=== PATIENT | male | born 1980 | race American Indian/Alaskan Native ===

== ENCOUNTER 2018-12-22 20:27 | Emergency (ER) | payer OTHER ==
[2018-12-22] MEDS ORDERED: ASPIRIN PO ONE (20:47)
--- NOTE | 2018-12-22 20:50 | Emergency Department Report ---
Chief Complaint: Chest Pain Stated Complaint: CHEST PAIN SOB Time Seen by Provider: 12/22/18 20:46 - HPI History of Present Illness: This is a 38 y.o. male that presents to the ER with chest pain. No PMH. Patient states he was in route home when symptoms started. States pain is worse with deep breaths. Current smoker, 1/2 ppd. - Exam Vital Signs: Vital Signs 12/22/18 20:33 Pulse Rate 80 Vital Signs 12/22/18 12/22/18 20:33 20:48 Temperature 98.4 F Pulse Rate 80 83 Respiratory 16 Rate Blood Pressure 197/119 O2 Sat by Pulse 98 Oximetry MSE screening note: Focused history and physical exam performed. Due to findings the following was ordered: labs, ekg, and cxr Main ED for further evaluation ED Disposition for MSE Condition: Stable
[2018-12-22 21:18] LABS: Basophils # (Auto) 0.1 K/mm3 (0.0-0.1); Basophils % (Auto) 1.7 % (0.0-1.8); Eosinophils # (Auto) 0.2 K/mm3 (0.0-0.4); Eosinophils % (Auto) 2.5 % (0.0-4.3); Hematocrit 43.6 % (35.5-45.6); Hemoglobin 14.8 gm/dl (11.8-15.2); Lymphocytes # (Auto) 4.1 K/mm3 (1.2-5.4); Lymphocytes % (Auto) 47.1 % (13.4-35.0); Mean Corpuscular HGB Conc 34 % (32-34); Mean Corpuscular Volume 87 fl (84-94); Monocytes # (Auto) 0.7 K/mm3 (0.0-0.8); Monocytes % (Auto) 7.8 % (0.0-7.3); Platelet Count 287 K/mm3 (140-440); Red Blood Count 5.02 M/mm3 (3.65-5.03); Red Cell Distribution Width 13.8 % (13.2-15.2)
--- NOTE | 2018-12-22 21:40 | XRay Report ---
PROCEDURE: XR CHEST 1V AP TECHNIQUE: AP chest HISTORY: Chest Pain COMPARISONS: None FINDINGS: Trachea midline. Heart size normal. No pneumothorax. No effusion. No acute airspace disease. No acute bony abnormality IMPRESSION: No active pulmonary disease.. This document is electronically signed by Al Loyola MD., December 22 2018 09:38:18 PM ET
[2018-12-22 21:50] LABS: BUN/Creatinine Ratio 13; Blood Urea Nitrogen 10 mg/dL (9-20); Calcium 9.6 mg/dL (8.4-10.2); Hemolysis Index 4
[2018-12-22] MEDS ORDERED: TORADOL IM ONE (23:44)
--- NOTE | 2018-12-22 23:45 | Emergency Department Report ---
ED Chest Pain HPI - General Chief Complaint: Chest Pain Stated Complaint: CHEST PAIN SOB Time Seen by Provider: 12/22/18 20:46 Source: patient, RN notes reviewed Mode of arrival: Ambulatory Limitations: No Limitations - History of Present Illness Initial Comments: This is a 38-year-old gentleman. The patient is not known to this provider previously. Patient reports a history of tobacco consumption, questionable elevated blood pressure, and daily cannabis consumption. The patient presents to the emergency room today with complaints of resolved lef t-sided chest pain. Chest pain started at 6:00. The chest pain is described as aching. It is now resolved. He thinks it lasted for about a minute or so. It was associated with pleuritic left upper back pain. The back pain is still present. It is aching and throbbing, constant since 6:00, worsens with palpation, range of motion and deep inspiration. The patient denies leg pain and leg swelling. He denies posterior leg pain and swelling, surgeries, immobilization. The patient reports no DVT or pulmonary embolus risk factors. He does not take aspirin on a daily basis. There is no family history of cardiac disease, or pulmonary embolus or DVT. He denies headache, neck pain, abdominal pain, hematemesis, or bright red blood per rectum. He reports that his chest pain did not radiate to his back, arms or neck, but rather the back pain was simultaneous. Furthermore, the patient to me denies exertional shortness of breath. The patient is left-hand dominant, and performs clerical work. MD Complaint: chest pain -: Gradual Onset: during rest Pain Location: left chest, other Severity scale (0 -10): 7 Quality: tightness, aching Consistency: other Improves With: other Worsens With: other Context: other Aspirin use within the Past 7 Days: (0) No - Related Data On Oral Contraceptives: No Previous Rx's Medication Instructions Recorded Last Taken Type Acetaminophen [Tylenol Arthritis] 650 mg PO Q6HR PRN #30 tablet.er 12/23/18 U nknown Rx Aspirin [Aspirin BABY CHEW TAB] 81 mg PO QDAY #30 tab.chew 12/23/18 Unknown Rx Famotidine [Pepcid] 20 mg PO BID #60 tablet 12/23/18 Unknown Rx Ibuprofen [Motrin] 600 mg PO Q8H PRN #30 tablet 12/23/18 Unknown Rx Allergies Allergy/AdvReac Type Severity Reaction Status Date / Time No Known Allergies Allergy Unverified 12/22/18 20:47 Heart Score - HEART Score History: Slightly suspicious EKG: Non-specific Age: < 45 Risk factors: 1-2 risk factors Troponin: < normal limit HEART Score: 2 - Critical Actions Critical Actions: 0-3 pts:0.9-1.7%risk of adverse cardiac event.Candidate for discharge ED Review of Systems ROS: Stated complaint: CHEST PAIN SOB Other details as noted in HPI Constitutional: denies: fever, malaise Eyes: denies: vision change ENT: denies: epistaxis Respiratory: denies: cough Cardiovascular: chest pain Gastrointestinal: denies: abdominal pain Genitourinary: denies: dysuria Musculoskeletal: back pain Skin: denies: lesions Neurological: denies: weakness Psychiatric: denies: anxiety ED Past Medical Hx - Past Medical History Previous Medical History?: No - Surgical History Past Surgical History?: No - Social History Smoking Status: Current Every Day Smoker Substance Use Type: None - Medications Home Medications: Home Medications Medication Instructions Recorded Confirmed Last Taken Type Acetaminophen [Tylenol Arthritis] 650 mg PO Q6HR PRN #30 tablet.er 12/23/18 Unknown Rx Aspirin [Aspirin BABY CHEW TAB] 81 mg PO QDAY #30 tab.chew 12/23/18 Unknown Rx Famotidine [Pepcid] 20 mg PO BID #60 tablet 12/23/18 Unknown Rx Ibuprofen [Motrin] 600 mg PO Q8H PRN #30 tablet 12/23/18 Unknown Rx ED Physical Exam - General Limitations: No Limitations General appearance: alert, in no apparent distress - Head Head exam: Present: atraumatic, normocephalic - Eye Eye exam: Present: normal appearance, EOMI. Absent: nystagmus - ENT ENT exam: Present: normal exam, normal orophraynx, mucous membranes moist, normal external ear exam - Neck Neck exam: Present: normal inspection, full ROM. Absent: tenderness, meningismus - Respiratory Respiratory exam: Present: normal lung sounds bilaterally. Absent: respiratory distress - Cardiovascular Cardiovascular Exam: Present: regular rate, normal rhythm, normal heart sounds. Absent: bradycardia, tachycardia, irregular rhythm, systolic murmur, diastolic murmur, rubs, gallop - GI/Abdominal GI/Abdominal exam: Present: soft. Absent: distended, tenderness, guarding, rebound, rigid, pulsatile mass - Rectal Rectal exam: Present: deferred - Extremities Exam Extremities exam: Present: normal inspection (2+ pulses noted in the bilateral upper, lower extremities. Compartments soft. No long bony tenderness. The pelvis is stable.), full ROM, normal capillary refill, other (there is no palpable cord. There is a negative Homans sign.). Absent: tenderness, pedal edema, joint swelling, calf tenderness - Back Exam Back exam: Present: normal inspection, full ROM. Absent: tenderness, CVA tenderness (R), paraspinal tenderness, vertebral tenderness - Neurological Exam Neurological exam: Present: alert, oriented X3, CN II-XII intact, normal gait, other (Extraocular movements intact. Tongue midline. No facial droop. Facial sensation intact to light touch in the V1, V2, V3 distribution bilaterally. 5 and 5 strength in 4 extremities.. Sensation is intact to light touch in 4 e xtremities.). Absent: motor sensory deficit - Psychiatric Psychiatric exam: Present: normal affect, normal mood - Skin Skin exam: Present: warm, dry, intact, normal color. Absent: rash ED Course Vital Signs 12/22/18 12/22/18 12/22/18 20:33 20:48 23:27 Temperature 98.4 F 98.1 F Pulse Rate 80 83 69 Respiratory 16 14 Rate Blood Pressure 197/119 Blood Pressure 147/93 [Right] O2 Sat by Pulse 98 98 Oximetry 12/23/18 00:13 Temperature Pulse Rate Respiratory 15 Rate Blood Pressure Blood Pressure [Right] O2 Sat by Pulse Oximetry JULIO score - Julio Score Age > 65: (0) No Aspirin use within the Past 7 Days: (0) No 3 or more CAD Risk Factors: (0) No 2 or more Angina events in past 24 hrs: (0) No Known CAD with more than 50% Stenosis: (0) No Elevated Cardiac Markers: (0) No ST Deviation Greater than 0.5mm: (0) No JULIO Score: 0 ED Medical Decision Making - Lab Data Result diagrams: 12/22/18 20:54 12/22/18 20:54 Vital Signs 12/22/18 12/22/18 12/22/18 20:33 20:48 23:27 Temperature 98.4 F 98.1 F Pulse Rate 80 83 69 Respiratory 16 14 Rate Blood Pressure 197/119 Blood Pressure 147/93 [Right] O2 Sat by Pulse 98 98 Oximetry 12/23/18 00:13 Temperature Pulse Rate Respiratory 15 Rate Blood Pressure Blood Pressure [Right] O2 Sat by Pulse Oximetry Lab Results 12/22/18 12/22/18 12/22/18 Range/Units 20:54 20:54 20:54 WBC 8.6 (4.5-11.0) K/mm3 RBC 5.02 (3.65-5.03) M/mm3 Hgb 14.8 (11.8-15.2) gm/dl Hct 43.6 (35.5-45.6) % MCV 87 (84-94) fl MCH 29 (28-32) pg MCHC 34 (32-34) % RDW 13.8 (13.2-15.2) % Plt Count 287 (140-440) K/mm3 Lymph % (Auto) 47.1 H (13.4-35.0) % [place] % (Auto) 7.8 H (0.0-7.3) % Eos % (Auto) 2.5 (0.0-4.3) % Baso % (Auto) 1.7 (0.0-1.8) % Lymph # 4.1 (1.2-5.4) K/mm3 [place] # 0.7 (0.0-0.8) K/mm3 Eos # 0.2 (0.0-0.4) K/mm3 Baso # 0.1 (0.0-0.1) K/mm3 Seg Neutrophils % 40.9 (40.0-70.0) % Seg Neutrophils # 3.5 (1.8-7.7) K/mm3 D-Dimer 135.00 (0-234) ng/mlDDU Sodium 139 (137-145) mmol/L Potassium 4.2 (3.6-5.0) mmol/L Chloride 99.6 (98-107) mmol/L Carbon Dioxide 27 (22-30) mmol/L Anion Gap 17 mmol/L BUN 10 (9-20) mg/dL Creatinine 0.8 (0.8-1.5) mg/dL Estimated GFR > 60 ml/min BUN/Creatinine Ratio 13 % Glucose 89 (75-100) mg/dL Calcium 9.6 (8.4-10.2) mg/dL Troponin T < 0.010 (0.00-0.029) ng/mL 12/22/18 Range/Units 23:33 WBC (4.5-11.0) K/mm3 RBC (3.65-5.03) M/mm3 Hgb (11.8-15.2) gm/dl Hct (35.5-45.6) % MCV (84-94) fl MCH (28-32) pg MCHC (32-34) % RDW (13.2-15.2) % Plt Count (140-440) K/mm3 Lymph % (Auto) (13.4-35.0) % [place] % (Auto) (0.0-7.3) % Eos % (Auto) (0.0-4.3) % Baso % (Auto) (0.0-1.8) % Lymph # (1.2-5.4) K/mm3 [place] # (0.0-0.8) K/mm3 Eos # (0.0-0.4) K/mm3 Baso # (0.0-0.1) K/mm3 Seg Neutrophils % (40.0-70.0) % Seg Neutrophils # (1.8-7.7) K/mm3 D-Dimer (0-234) ng/mlDDU Sodium (137-145) mmol/L Potassium (3.6-5.0) mmol/L Chloride (98-107) mmol/L Carbon Dioxide (22-30) mmol/L Anion Gap mmol/L BUN (9-20) mg/dL Creatinine (0.8-1.5) mg/dL Estimated GFR ml/min BUN/Creatinine Ratio % Glucose (75-100) mg/dL Calcium (8.4-10.2) mg/dL Troponin T < 0.010 (0.00-0.029) ng/mL - EKG Data -: EKG Interpreted by Wy EKG shows normal: sinus rhythm Rate: normal - EKG Data When compared to previous EKG there are: previous EKG unavailable 12/23/18 00:40 KG #1 shows a normal sinus rhythm, 83 bpm, normal axis, normal intervals, high left ventricular voltage, early repolarization, motion artifact, abnormal EKG, not consistent with ST elevation myocardial infarction. EKG #2 appears to be unchanged from prior. - Radiology Data Radiology results: report reviewed, image reviewed X-ray of the chest is negative for acute disease - Medical Decision Making Differential diagnosis, including not limited to: Chest wall pain, costochondritis, pulmonary embolus, GERD, gastritis, hiatal hernia, pneumonia, acute coronary syndrome, muscular back pain Assessment and plan: Pleasant appearing calm and cooperative, 38-year-old gentleman, with chest pain that is low risk by the JULIO score, low risk by the heart score, troponin negative 2, chest pain now resolved, no pulmonary embolus or DVT risk factors, low risk by well's criteria, perc negative, with a negative d-dimer. Objective testing unremarkable. Patient appears to be in no pain at this time, and he reports that he feels quite comfortable at this time. He is noted to be talking on a cellular phone, and in no acute distress. Discussed recommendations for tobacco cessation and cannabis cessation with the patient, who verbalized understanding, and indicated that he does not want to quit smoking at this time. Recommended follow-up with a molecular biologist complete outpatient cardiac risk stratification, as the patient is at low risk for major adverse cardiac event. Extensive discussion had with patient. Through shared decision making, patient understands that he is at low risk for major adverse cardiac event, and reports that he is reliable to closely follow up with outpatient cardiology to complete a risk stratification. Feels improved after Toradol. Critical care attestation.: If time is entered above; I have spent that time in minutes in the direct care of this critically ill patient, excluding procedure time. ED Disposition Clinical Impression: History of chest pain, Elevated blood pressure reading Disposition: DC- TO HOME OR SELFCARE Is pt being admited?: No Does the pt Need Aspirin: No Condition: Stable Instructions: Chest Pain (ED), Hypertension (ED) Additional Instructions: Take the medications as needed/directed. I recommend the patient discontinue consumption of cannabis, and tobacco. I recommend that the patient follow up with your molecular biologist within the next 3-4 days as an outpatient. Contact any of the listed cardiology practices, and informed front office staff that patient was here for an evaluation in the emergency room, and that outpatient close cardiology follow-up has been recommended to complete outpatient cardiac risk stratification/obtain cardiac stress test. Take medications as needed/directed. Return to the emergency room right away with new pain, worsening pain, migration of pain, projectile vomiting, change in mental status, confusion, new, worsening or different symptoms. Referrals: YARELIS CORDERO MD [Staff Physician] - 3-5 Days GENNARO MCKENZIE MD [Staff Physician] - 3-5 Days Forms: Work/School Release Form(ED)
[2018-12-23 00:43] VITALS: BP 133/94
== END 2018-12-23 01:01 | disposition home or self-care (01) ==
LOC: ED 20:27
DX: R07.89 Other chest pain (principal); R03.0 Elevated blood-pressure reading, without diagnosis of hypertension; F17.200 Nicotine dependence, unspecified, uncomplicated
CPT/HCPCS: 36415; 71045; 80048; 84484; 85025; 85379; 93005; 93010; 96372; 99284; J1885